=== PATIENT | male | born 1990 | race African-American/Black ===

== ENCOUNTER 2020-06-02 16:37 | Emergency (ER) | payer OTHER ==
[~2020-06-02] VITALS: Ht 188 cm; Wt 105.6 kg
--- OUTSIDE RECORDS SUMMARY | 2020-06-02 16:44 | CCD ---
Author Author [facility] Organization [facility] Address Unknown Phone Unavailable Support Name Relationship Address Phone [facility] Next Of Kin [address] [place] [address] ADAIR STEINER Next Of Kin [address] [facility] [address] [facility] [place] [address] [place] [address] ADAIR STEINER ECON [address] [place] [address] Unavailable Re-disclosure Warning The records that you are about to access may contain information from federally-assisted alcohol or drug abuse programs. If such information is present, then the following federally mandated warning applies: This information has been disclosed to you from records protected by federal confidentiality rules (42 CFR part 2). The federal rules prohibit you from making any further disclosure of this information unless further disclosure is expressly permitted by the written consent of the person to whom it pertains or as otherwise permitted by 42 CFR part 2. A general authorization for the release of medical or other information is NOT sufficient for this purpose. The Federal rules restrict any use of the information to criminally investigate or prosecute any alcohol or drug abuse patient.The records that you are about to access may contain highly sensitive health information, the redisclosure of which is protected by Article 27-F of the [facility] Public Health law. If you continue you may have access to information: Regarding HIV / AIDS; Provided by facilities licensed or operated by the [facility] Office of Mental Health; or Provided by the [facility] Office for People With Developmental Disabilities. If such information is present, then the following [facility] mandated warning applies: This information has been disclosed to you from confidential records which are protected by state law. State law prohibits you from making any further disclosure of this information without the specific written consent of the person to whom it pertains, or as otherwise permitted by law. Any unauthorized further disclosure in violation of state law may result in a fine or usp sentence or both. A general authorization for the release of medical or other information is NOT sufficient authorization for further disc losure. Immunizations Vaccine Date Status Description Data Source(s) INFLUENZA VIRUS VACCINE QUADRIVALENT 2019- (6 MOS AN D UP) 02/18/2020 12:00:00 AM EDT completed [facility] Insurance Providers Payer name Policy type / Coverage type Policy ID Covered libertarian ID Covered libertarian's relationship to harrington Policy [place] Plan Information [employer] [id number] SP [id number] ANSI-Not a Secondary Insurance [id number] ANSI-Not a Secondary Insurance [id number] ANSI-Not a Secondary Insurance [id number] ACTIVE DUTY [id number] SP [id number] ANSI-Not a Secondary Insurance [id number] ACTIVE DUTY ACTIVE DUTY Self YEIMY JATIN ACTIVE DUTY
[2020-06-02] MEDS ORDERED: KETOROLAC TROMETHAMINE 10 MG TAB PO ONE (18:45)
[2020-06-02] MEDS ORDERED: NORCO, ANEXSIA 5/325MG TABLET (HYDROcodone/ACETAMINOPHEN) PO ONE (18:45)
[2020-06-02] MEDS ORDERED: ROBA750T4 PO (18:50)
[2020-06-02] MEDS ORDERED: MEDR4PAK PO ×2 (18:50→18:53)
[2020-06-02 19:04] VITALS: BP 142/70
--- OUTSIDE RECORDS SUMMARY | 2020-06-02 19:46 | CCD ---
Author Author [facility] Organization [facility] Address Unknown Phone Unavailable Support Name Relationship Address Phone [facility] Next Of Kin [address] [place] [address] ADAIR STEINER Next Of Kin [address] [facility] [place] [address] ADAIR STEINER ECON [address] [place] [address] Unavailable Re-disclosure Warning The records that you [...] is protected by Article 27-F of the [facility] Public Health law. If you continue you may have access to information: Regarding HIV / AIDS; Provided by facilities licensed or operated by the [facility] Office of Mental Health; or Provided by the [facility] Office for People With Developmental Disabilities. If such information is present, then the following [facility] mandated warning applies: This information has been [...] law may result in a fine or penitentiary sentence or both. A general authorization for the release of medical or other information is NOT sufficient authorization for further disc losure. Immunizations Vaccine Date Status Description Data Source(s) INFLUENZA VIRUS VACCINE QUADRIVALENT 2019- (6 MOS AN D UP) 02/18/2020 12:00:00 AM EDT completed [facility] Insurance Providers Payer name Policy type / Coverage type Policy ID Covered constitution party ID Covered constitution party's relationship to harrington Policy Har[place] Plan Information [employer] [id number] SP [id number] ANSI-Not a Secondary Insurance [id number] ANSI-Not a Secondary Insurance [id number] ANSI-Not a Secondary Insurance [id number] ACT[employer] DUTY [id number] SP [id number] ANSI-Not a Secondary Insurance [id number] ACTIVE DUTY ACTIVE DUTY Self YEIMY JATIN ACTIVE [employer]Y
== END 2020-06-02 19:18 | disposition home or self-care (01) ==
LOC: M ED 16:37
DX: M54.42 Lumbago with sciatica, left side (principal)

== ENCOUNTER 2020-11-07 05:01 | Emergency (ER) | payer OTHER ==
[~2020-11-07] VITALS: Ht 190.5 cm; Wt 115.3 kg
[~2020-11-07 05:01] MED LIST: MEDR4PAK PO; ROBA750T4 PO
[2020-11-07 05:02] VITALS: BP 121/74
== END 2020-11-07 07:30 | disposition home or self-care (01) ==
LOC: M ED 05:01
DX: J02.9 Acute pharyngitis, unspecified (principal)

== ENCOUNTER → 2020-11-29 | Outpatient (REF) ==
--- NOTE | 2020-11-29 17:04 | REP ---
INDICATION: ARTHRITIS. COMPARISON: None. TECHNIQUE: Eight views, bilateral wrist series. FINDINGS: Four views of each wrist demonstrate overall normal mineralization. Joint spaces are preserved. No erosive changes seen. Periarticular soft tissues are bilaterally unremarkable. IMPRESSION: Negative bilateral wrist radiograph series. <Electronically signed by Ramone Alvarado > 11/29/20 [id number]
--- NOTE | 2020-11-29 17:06 | REP ---
INDICATION: ARTHRITIS. COMPARISON: None. TECHNIQUE: Eight views. Bilateral hand series. FINDINGS: Four views of each hand demonstrate overall normal mineralization. There is old posttraumatic deformity of the distal phalanx of the right thumb. There is some bony overgrowth of the articular surface of the distal phalanx of the thumb along its thenar side. On the left the distal phalanx of the thumb is somewhat hypoplastic. There is soft tissue swelling at the 1st MCP joint on the left. No erosive changes seen. Joint spaces are preserved. IMPRESSION: Soft tissue swelling about the left 1st metacarpophalangeal joint. Somewhat hypoplastic distal phalanx of the left thumb and old post traumatic deformity appearance of the distal phalanx of the right thumb. No evidence of bony erosive change.. <Electronically signed by Ramone Alvarado > 11/29/20 [id number]
--- NOTE | 2020-11-29 17:07 | REP ---
INDICATION: ARTHRITIS. COMPARISON: None. TECHNIQUE: AP and lateral views of the right elbow are provided. FINDINGS: AP and latter views of the oral right elbow demonstrate normal bones, joints, and soft tissues. No fracture or subluxation is seen. No opaque foreign body noted. IMPRESSION: Negative right elbow series. <Electronically signed by Ramone Alvarado > 11/29/20 [id number]
--- NOTE | 2020-11-29 17:08 | REP ---
INDICATION: ARTHRITIS. COMPARISON: None. TECHNIQUE: Six views, bilateral knee radiographs. FINDINGS: AP lateral and sunrise views of each knee demonstrate a normal fabella on the right. There is soft tissue calcification in the suprapatellar soft tissues on the right. In addition, there is a linear calcification adjacent to the medial metaphysis of the distal femur on the right raising question of old medial collateral ligament injury. Joint spaces are preserved. No deformity is seen. No erosive change or definite joint effusion is seen. IMPRESSION: Findings suggest old medial collateral ligament injury on the right. No joint space narrowing or erosive change.. <Electronically signed by Ramone Alvarado > 11/29/20 [id number]
--- NOTE | 2020-11-29 17:13 | REP ---
INDICATION: ARTHRITIS. COMPARISON: None. TECHNIQUE: Four views of the right foot FINDINGS: Four views of the right foot demonstrate normal bones, joints, and soft tissues. No fracture or subluxation is seen. No opaque foreign body noted. There is a small accessory ossicle adjacent to the medial surface of the proximal end of the distal phalanx of the great toe. No acute abnormality. IMPRESSION: Negative right foot series. <Electronically signed by Ramone Alvarado > 11/29/20 [id number]
--- NOTE | 2020-11-29 17:14 | REP ---
INDICATION: ARTHRITIS. COMPARISON: None. TECHNIQUE: Four views of the right ankle are provided. FINDINGS: Four views of the right ankle demonstrate intact ankle mortise. Joint spaces are preserved. Overall mineralization pattern is normal. No soft tissue abnormality is appreciated. IMPRESSION: Negative radiographs of the right ankle. <Electronically signed by Ramone Alvarado > 11/29/20 [id number]
--- NOTE | 2020-11-29 17:14 | REP ---
INDICATION: ARTHRITIS. COMPARISON: None. TECHNIQUE: Three views of the right shoulder. FINDINGS: Three views right shoulder demonstrate normal alignment of the glenohumeral and acromioclavicular joints. Periarticular soft tissues are unremarkable. The right hemithorax is unremarkable. IMPRESSION: Negative right shoulder radiographs. <Electronically signed by Ramone Alvarado > 11/29/20 [id number]
== END ==
LOC: M PLAIMG 10:45
PROVIDERS: ATTEND Internal Medicine
DX: M19.90 Unspecified osteoarthritis, unspecified site (principal)